=== PATIENT | female | born 1990 | race Caucasian/White ===

== ENCOUNTER 2017-04-02 18:24 | Inpatient (IN) | payer MEDICAID, OTHER ==
[~2017-04-02] VITALS: Ht 167.6 cm; Wt 117.4 kg
[~2017-04-02 18:24] MED LIST: ACET500C5 PO; AMO500 PO; CETI10CA PO; GUAI120S26 PO; IBUP-1542 PO
[2017-04-02 18:34] VITALS: BP 120/69; PULSE 71; RESP 18; Ht 167.6 cm; Wt 117.4 kg
[2017-04-02] MEDS ORDERED: LACTATED RINGER'S 1,000 ML IV SCH (18:35)
--- NOTE | 2017-04-02 18:46 | TRIAGE ---
OB Triage Datetime Report Generated by CPN: 04/02/2017 18:46 Datetime: 04/02/2017 18:46 Assessment Type: Admission Assessment Maternal Assessment Level of Consciousness: Fully Conscious DTR's/Clonus: DTRs 2+; No Clonus Headache: Denies Blurred Vision: No Respiratory Effort: Unlabored; Regular Rhythm; Equal Expansion Breath Sounds, Left: Clear and Equal Breath Sounds, Right: Clear and Equal Nausea/Vomiting: Denies RUQ Epigastric Pain: Denies Lower Extremities Edema: None Degree: None Upper Extremities Edema: None Degree: None Facial Edema: None Fall Risk Assessment History of Falling: (0) No Secondary Diagnosis: (0) No Ambulatory Aid: (0) Bedrest/Nurse Assist IV Therapy: (0) No Gait: (0) Normal/Bedrest/Immobile Mental Status: (0) Oriented to Own Ability Fall Score: 0 Fall Risk Score Definition: No Risk: No action required Datetime: 04/02/2017 18:45 EGA: 39.3 Datetime: 04/02/2017 18:43 Time of Arrival: 04/02/2017 18:11 Arrived By: Ambulatory Arrived From: Home Chief Complaint: uc's Movement: Present Contractions: Regular Time Contractions Began: 04/02/2017 00:00 Rupture of Membranes: Denies Vaginal Bleeding: None Vaginal Discharge: Denies Recent Sexual Intercouse: Denies Abdominal Trauma: Not Applicable Patient Complaints: Contractions; Cramping Time Provider Notified: 04/02/2017 18:30 Provider Notified: DR HALL Initial Plan: nst
[2017-04-02] MEDS ORDERED: CARBOPROST 250 MCG INJ IM PRN (19:00)
[2017-04-02] MEDS ORDERED: MISOPROSTOL 200 MCG TAB PR PRN (19:00)
[2017-04-02] MEDS ORDERED: BUTORPHANOL 2 MG INJ IV PRN (19:00)
[2017-04-02] MEDS ORDERED: OXYTOCIN 30 UNITS/LR 500 ML IV PRN (19:00)
[2017-04-02] MEDS ORDERED: OXYTOCIN 30 UNITS/LR 500 ML IV SCH ×2 (19:00)
[2017-04-02] MEDS ORDERED: IBUPROFEN 600 MG TAB PO PRN (19:00)
[2017-04-02] MEDS ORDERED: METHYLERGONOVINE 0.2 MG INJ IM PRN (19:00)
[2017-04-02] MEDS ORDERED: AMPICILLIN 2 GM/NS (PMX) 100 ML IV ONE (19:00)
[2017-04-02] MEDS ORDERED: LIDOCAINE 1% (MPF) 30 ML INJ INJ PRN (19:00)
[2017-04-02] MEDS ORDERED: LACTATED RINGER'S 1,000 ML IV PRN (19:00)
[2017-04-02 19:08] LABS: ADD SCAN DIFF NO
[2017-04-02 19:10] LABS: BASOPHILS % 0.2 % (0.0-2.0); EOSINOPHILS # 0.1 10^3/ul (0.0-0.5); EOSINOPHILS % 0.6 % (0.0-7.0); HEMATOCRIT 33.4 % (37.0-47.0); HEMOGLOBIN 11.1 g/dl (12.0-16.0); LYMPHOCYTES # 1.3 10^3/ul (0.8-2.9); LYMPHOCYTES % 10.5 % (15.0-51.0); MEAN CORPUSCULAR HEMOGLOBIN 25.9 pg (29.0-33.0); MEAN CORPUSCULAR HGB CONC 33.2 g/dl (32.0-37.0); MEAN CORPUSCULAR VOLUME 77.9 fl (82.0-101.0); MEAN PLATELET VOLUME 11.3 fl (7.4-10.4); MONOCYTE # 0.6 10^3/ul (0.3-0.9); MONOCYTES % 4.4 % (0.0-11.0); NEUTROPHIL # 10.6 10^3/ul (1.6-7.5); NEUTROPHILS % 83.8 % (39.0-77.0); PLATELET COUNT 194 10^3/UL (140-415); RED BLOOD COUNT 4.29 10^6/ul (4.20-5.40); RED CELL DISTRIBUTION WIDTH 15.2 % (11.5-14.5); WHITE BLOOD COUNT 12.6 10^3/ul (4.8-10.8)
[2017-04-02 19:43] LABS: INR 1.05; PARTIAL THROMBOPLASTIN TIME 33.1 Sec (25.0-35.0); PROTIME 13.7 Sec (12.2-14.2); PT RATIO 1.1
[2017-04-02] MEDS ORDERED: FENTAnyl 2MCG/ML-ROPIV 0.2% 100 ML ONE (20:25)
[2017-04-02] MEDS ORDERED: FENTAnyl 2MCG/ML-ROPIV 0.2% 100 ML BAG EPI SCH (20:30)
[2017-04-02] MEDS ORDERED: NALOXONE (0.4 MG/ML) INJ IV PRN (20:30)
[2017-04-02] MEDS ORDERED: ROPIVACAINE 0.2% 100 ML INJ EPI ONE (20:30)
--- NOTE | 2017-04-02 22:34 | LDN ---
Date/Time of Note Date/Time of Note DATE: 04/02/17 TIME: 22:23 Delivery Summary 27 years Ab 1`with Augwas admired in labor this afternoon and progressed to complete dilatation under epidural anesthesia of a male 8 and 9. Laboratory Tests Test 04/02/17 18:50 White Blood Count 12.610^3/ul Red Blood Count 4.2910^6/ul Hemoglobin 11.1g/dl Hematocrit 33.4% Mean Corpuscular Volume 77.9fl Mean Corpuscular Hemoglobin 25.9pg Mean Corpuscular Hemoglobin Concent 33.2g/dl Red Cell Distribution Width 15.2% Platelet Count 07406^3/UL Mean Platelet Volume 11.3fl Neutrophils % 83.8% Lymphocytes % 10.5% Monocytes % 4.4% Eosinophils % 0.6% Basophils % 0.2% Nucleated Red Blood Cells % 0.0/100WBC Neutrophils # 10.610^3/ul Lymphocytes # 1.310^3/ul Monocytes # 0.610^3/ul Eosinophils # 0.110^3/ul Basophils # 0.010^3/ul Nucleated Red Blood Cells # 0.010^3/ul Prothrombin Time 13.7Sec Prothrombin Time Ratio 1.1 INR International Normalized Ratio 1.05 Activated Partial Thromboplast Time 33.1Sec Hepatitis B Surface Antigen NEGATIVE HIV (1&2) Antibody NEGATIVE Current Medications Medications (Trade) Dose Ordered Sig/Tarun Route PRN Reason Start Time Stop Time Status Last Admin Dose Admin Lactated Ringer's 1,000 ml @ 125 mls/hr Q8H IV 04/02/17 18:35 04/02/17 20:08 Ampicillin 100 ml @ 100 mls/hr ONCE ONCE IV 04/02/17 19:00 04/02/17 21:40 DC 04/02/17 20:24 Ampicillin (Ampicillin 1 Gm/ NS (Pmx)) 50 ml @ 100 mls/hr Q4H IV 04/02/17 23:00 04/02/17 23:00 DC Butorphanol Tartrate (Stadol) 2 mg Q2H PRN IV PAIN 04/02/17 19:00 Lidocaine 30 ml 30 ml ONCE PRN INJ EPISIOTOMY/TEARING 04/02/17 19:00 Oxytocin/Lactated Ringer's 500 ml @ 125 mls/hr ONCE -MAY REPEAT X1 IV 04/02/17 19:00 Oxytocin/Lactated Ringer's 500 ml @ 125 mls/hr ONCE IV 04/02/17 19:00 Ibuprofen 600 mg 600 mg ONCE PRN PO Mild Pain (Pain Score 1-3) 04/02/17 19:00 Lactated Ringer's 1,000 ml @ 2,000 mls/hr Q30M PRN IV PRE-EPIDURAL BOLUS 04/02/17 19:00 04/02/17 20:06 Oxytocin/Lactated Ringer's 500 ml @ 0 mls/hr ONCE PRN IV For Hemorrhage Management 04/02/17 19:00 Methylergonovine Maleate (Methergine) 0.2 mg ONCE PRN IM VAGINAL BLEEDING 04/02/17 19:00 Carboprost Tromethamine (Hemabate) 250 mcg ONCE PRN IM VAGINAL BLEEDING 04/02/17 19:00 Misoprostol (Cytotec) 1,000 mcg ONCE PRN MA VAGINAL BLEEDING 04/02/17 19:00 Naloxone HCl (Narcan) 0.2 mg Q2M PRN IV FOR RESP RATE 8 OR LESS 04/02/17 20:30 Fentanyl/ Ropivacaine 100 ml 100 ml EPIDURAL (PCEA) EPI 04/02/17 20:30 Fentanyl/ Ropivacaine 100 ml @ ud STK-MED ONCE .ROUTE 04/02/17 20:25 04/02/17 20:26 DC Ropivacaine (Naropin 0.2% 100 ml) 100 ml ONCE ONCE EPI 04/02/17 20:30 04/02/17 20:35 DC male .new born. Weeks of Gestation 39 Placenta Delivered: Spontaneously Meconium: Thick Episiotomy: No Anesthesia type: Epidural Estimated blood loss: 200 Sponge & Needle done & correct: Yes All needle counts correct: Yes Any foreign bodies felt in the: No Problems: Infant Delivery Information Sex Sex: male Apgars 1 Minute: 8 5 Minute: 9 Suctioning Nose & mouth suctioned at beena: Yes Delee suction performed: No Umbilical Cord Umbilical cord with: 3 Vessels Cord presentations: nuchal cord Nuchal cord present X: 3 Cord Blood was obtained: Yes Mother & Baby Disposition Disposition Mom & Baby to Maternity; Good: Yes Mom transferred to: Med/Surg Baby to NICU: No YESSICA HOGAN MD Apr 02, 2017 22:34
--- NOTE | 2017-04-02 22:47 | HP ---
Date/Time of Note Date/Time of Note DATE: 04/02/17 TIME: 22:35 OB - History Hx of Present Free Text/Dictation 27 years old 4 P2 AB1 39 week and 4 days admired in labor. Laboratory Tests Test 04/02/17 18:50 White Blood Count 12.610^3/ul Red Blood Count 4.2910^6/ul Hemoglobin 11.1g/dl Hematocrit 33.4% Mean Corpuscular Volume 77.9fl Mean Corpuscular Hemoglobin 25.9pg Mean Corpuscular Hemoglobin Concent 33.2g/dl Red Cell Distribution Width 15.2% Platelet Count 77939^3/UL Mean Platelet Volume 11.3fl Neutrophils % 83.8% Lymphocytes % 10.5% Monocytes % 4.4% Eosinophils % 0.6% Basophils % 0.2% Nucleated Red Blood Cells % 0.0/100WBC Neutrophils # 10.610^3/ul Lymphocytes # 1.310^3/ul Monocytes # 0.610^3/ul Eosinophils # 0.110^3/ul Basophils # 0.010^3/ul Nucleated Red Blood Cells # 0.010^3/ul Prothrombin Time 13.7Sec Prothrombin Time Ratio 1.1 INR International Normalized Ratio 1.05 Activated Partial Thromboplast Time 33.1Sec Hepatitis B Surface Antigen NEGATIVE HIV (1&2) Antibody NEGATIVE Current Medications Medications (Trade) Dose Ordered Sig/Tarun Route PRN Reason Start Time Stop Time Status Last Admin Dose Admin Lactated Ringer's 1,000 ml @ 125 mls/hr Q8H IV 04/02/17 18:35 04/02/17 20:08 Ampicillin 100 ml @ 100 mls/hr ONCE ONCE IV 04/02/17 19:00 04/02/17 21:40 DC 04/02/17 20:24 Ampicillin (Ampicillin 1 Gm/ NS (Pmx)) 50 ml @ 100 mls/hr Q4H IV 04/02/17 23:00 04/02/17 23:00 DC Butorphanol Tartrate (Stadol) 2 mg Q2H PRN IV PAIN 04/02/17 19:00 Lidocaine 30 ml 30 ml ONCE PRN INJ EPISIOTOMY/TEARING 04/02/17 19:00 Oxytocin/Lactated Ringer's 500 ml @ 125 mls/hr ONCE -MAY REPEAT X1 IV 04/02/17 19:00 Oxytocin/Lactated Ringer's 500 ml @ 125 mls/hr ONCE IV 04/02/17 19:00 Ibuprofen 600 mg 600 mg ONCE PRN PO Mild Pain (Pain Score 1-3) 04/02/17 19:00 Lactated Ringer's 1,000 ml @ 2,000 mls/hr Q30M PRN IV PRE-EPIDURAL BOLUS 04/02/17 19:00 04/02/17 20:06 Oxytocin/Lactated Ringer's 500 ml @ 0 mls/hr ONCE PRN IV For Hemorrhage Management 04/02/17 19:00 Methylergonovine Maleate (Methergine) 0.2 mg ONCE PRN IM VAGINAL BLEEDING 04/02/17 19:00 Carboprost Tromethamine (Hemabate) 250 mcg ONCE PRN IM VAGINAL BLEEDING 04/02/17 19:00 Misoprostol (Cytotec) 1,000 mcg ONCE PRN [place] VAGINAL BLEEDING 04/02/17 19:00 Naloxone HCl (Narcan) 0.2 mg Q2M PRN IV FOR RESP RATE 8 OR LESS 04/02/17 20:30 Fentanyl/ Ropivacaine 100 ml 100 ml EPIDURAL (PCEA) EPI 04/02/17 20:30 Fentanyl/ Ropivacaine 100 ml @ ud STK-MED ONCE .ROUTE 04/02/17 20:25 04/02/17 20:26 DC Ropivacaine (Naropin 0.2% 100 ml) 100 ml ONCE ONCE EPI 04/02/17 20:30 04/02/17 20:35 DC : 4 Para: 2 Therapeutic : 1 Care: Good Care Abnormal Ultrasound Findings: normal IUP at term admited in active labor Obstetrical Complications: None Medical Complications: None Other Concerns: overweight Past Family/Social History * Past Medical, Surgical, Family and Obstetric Histories reviewed from chart. Blood Type: A+ RPR/VDRL: Negative GBS Status: Negative HBsAG: Negative OB Admission Exam Vital Signs Vital Signs Vital Signs Date Time Temp Pulse Resp B/P Pulse Ox O2 Delivery O2 Flow Rate FiO2 04/02/17 18:34 97.5 71 18 120/69 Room Air Last 72 hours Lab Results CBC & BMP 04/02/17 18:50 YESSICA HOGAN MD Apr 02, 2017 22:47
[2017-04-02] MEDS ORDERED: AMPICILLIN 1 GM/NS (PMX) 50 ML IV SCH (23:00)
[2017-04-03] MEDS: LACTATED RINGER'S 1,000 ML IV* SCH ×3 (00:07→16:07)
[2017-04-03 00:20] VITALS: BP 136/73; RESP 19
[2017-04-03] MEDS ORDERED: ZOLPIDEM 5 MG TAB PO PRN (00:30)
[2017-04-03] MEDS: SENNA/DOCUSATE NA (8.6MG/50MG) TAB PO SCH ×3 (00:30→21:23)
[2017-04-03] MEDS ORDERED: ACETAMINOPHEN 500 MG TAB PO PRN ×2 (00:30)
[2017-04-03] MEDS ORDERED: MISOPROSTOL 200 MCG TAB PR PRN (00:30)
[2017-04-03] MEDS ORDERED: METHYLERGONOVINE 0.2 MG TAB PO PRN (00:30)
[2017-04-03] MEDS ORDERED: METHYLERGONOVINE 0.2 MG INJ IM PRN (00:30)
[2017-04-03] MEDS ORDERED: ONDANSETRON 4 MG INJ IV PRN (00:30)
[2017-04-03] MEDS ORDERED: CARBOPROST 250 MCG INJ IM PRN (00:30)
[2017-04-03] MEDS ORDERED: ACETAMINOPHEN 325 MG TAB PO PRN (00:30)
[2017-04-03] MEDS ORDERED: GUAIFENESIN/DM 5ML CUP PO PRN (00:30)
[2017-04-03] MEDS ORDERED: IBUPROFEN 600 MG TAB PO PRN (00:30)
[2017-04-03] MEDS ORDERED: LANOLIN 7 GM TUBE TOP PRN (00:30)
[2017-04-03] MEDS ORDERED: OXYTOCIN 30 UNITS/LR 500 ML IV PRN (00:30)
[2017-04-03] MEDS ORDERED: WITCH HAZEL/GLYCERIN PAD PR PRN (00:30)
[2017-04-03] MEDS ORDERED: DIPHENHYDRAMINE 25 MG CAP PO PRN (00:30)
[2017-04-03 02:12] LABS: BARBITURATES Negative (NEGATIVE); BENZODIAZEPINES Negative (NEGATIVE); CANNABINOIDS Negative (NEGATIVE); COCAINE Negative (NEGATIVE); OPIATES Negative (NEGATIVE)
[2017-04-03 04:05] VITALS: BP 121/58; PULSE 89; RESP 19
[2017-04-03] MEDS: IBUPROFEN 600 MG TAB PO SCH ×3 (05:37→17:30)
[2017-04-03 08:40] VITALS: BP 121/62; PULSE 80; RESP 16
[2017-04-03 08:45] LABS: HEMATOCRIT 31.1 % (37.0-47.0)
[2017-04-03] MEDS ORDERED: AMOXICILLIN 500 MG CAP PO SCH (09:00)
--- NOTE | 2017-04-03 12:10 | PN ---
Date/Time of Note Date/Time of Note DATE: 04/03/17 TIME: 12:07 OB Subjective Subjective Subjective April 03, 2017 visit Post day 1 Patient is doing well, Ambulatory She is afebrile Abdomen is soft , Fundus is firm Moderate amount of lochia Breasts are soft, Nipples are intact No calf tenderness. Perineum intact . Breast feeding the new born. Laboratory Tests Test 04/02/17 18:50 04/03/17 00:05 04/03/17 08:09 White Blood Count 12.610^3/ul Red Blood Count 4.2910^6/ul Hemoglobin 11.1g/dl 10.0g/dl Hematocrit 33.4% 31.1% Mean Corpuscular Volume 77.9fl Mean Corpuscular Hemoglobin 25.9pg Mean Corpuscular Hemoglobin Concent 33.2g/dl Red Cell Distribution Width 15.2% Platelet Count 74416^3/UL Mean Platelet Volume 11.3fl Neutrophils % 83.8% Lymphocytes % 10.5% Monocytes % 4.4% Eosinophils % 0.6% Basophils % 0.2% Nucleated Red Blood Cells % 0.0/100WBC Neutrophils # 10.610^3/ul Lymphocytes # 1.310^3/ul Monocytes # 0.610^3/ul Eosinophils # 0.110^3/ul Basophils # 0.010^3/ul Nucleated Red Blood Cells # 0.010^3/ul Prothrombin Time 13.7Sec Prothrombin Time Ratio 1.1 INR International Normalized Ratio 1.05 Activated Partial Thromboplast Time 33.1Sec Hepatitis B Surface Antigen NEGATIVE HIV (1&2) Antibody NEGATIVE Urine Opiates Screen Negative Urine Barbiturates Negative Urine Amphetamines Screen Negative Urine Benzodiazepines Screen Negative Urine Cocaine Screen Negative Urine Cannabinoids Negative Current Medications Medications (Trade) Dose Ordered Sig/Tarun Route PRN Reason Start Time Stop Time Status Last Admin Dose Admin Lactated Ringer's 1,000 ml @ 125 mls/hr Q8H IV 04/02/17 18:35 04/03/17 00:16 DC 04/02/17 20:08 Ampicillin 100 ml @ 100 mls/hr ONCE ONCE IV 04/02/17 19:00 04/02/17 21:40 DC 04/02/17 20:24 Ampicillin (Ampicillin 1 Gm/ NS (Pmx)) 50 ml @ 100 mls/hr Q4H IV 04/02/17 23:00 04/02/17 23:00 DC Butorphanol Tartrate (Stadol) 2 mg Q2H PRN IV PAIN 04/02/17 19:00 04/03/17 00:16 DC Lidocaine 30 ml 30 ml ONCE PRN INJ EPISIOTOMY/TEARING 04/02/17 19:00 04/03/17 00:16 DC Oxytocin/Lactated Ringer's 500 ml @ 125 mls/hr ONCE -MAY REPEAT X1 IV 04/02/17 19:00 04/02/17 23:21 Oxytocin/Lactated Ringer's 500 ml @ 125 mls/hr ONCE IV 04/02/17 19:00 04/03/17 00:15 DC 04/02/17 23:22 Ibuprofen 600 mg 600 mg ONCE PRN PO Mild Pain (Pain Score 1-3) 04/02/17 19:00 04/03/17 00:15 DC Lactated Ringer's 1,000 ml @ 2,000 mls/hr Q30M PRN IV PRE-EPIDURAL BOLUS 04/02/17 19:00 04/03/17 00:15 DC 04/02/17 20:06 Oxytocin/Lactated Ringer's 500 ml @ 0 mls/hr ONCE PRN IV For Hemorrhage Management 04/02/17 19:00 04/03/17 00:15 DC Methylergonovine Maleate (Methergine) 0.2 mg ONCE PRN IM VAGINAL BLEEDING 04/02/17 19:00 04/03/17 00:15 DC Carboprost Tromethamine (Hemabate) 250 mcg ONCE PRN IM VAGINAL BLEEDING 04/02/17 19:00 04/03/17 00:15 DC Misoprostol (Cytotec) 1,000 mcg ONCE PRN [place] VAGINAL BLEEDING 04/02/17 19:00 04/03/17 00:15 DC Naloxone HCl (Narcan) 0.2 mg Q2M PRN IV FOR RESP RATE 8 OR LESS 04/02/17 20:30 04/03/17 00:16 DC Fentanyl/ Ropivacaine 100 ml 100 ml EPIDURAL (PCEA) EPI 04/02/17 20:30 04/03/17 00:16 DC Fentanyl/ Ropivacaine 100 ml @ ud STK-MED ONCE .ROUTE 04/02/17 20:25 04/02/17 20:26 DC Ropivacaine 100 ml 100 ml ONCE ONCE EPI 04/02/17 20:30 04/02/17 20:35 DC Lactated Ringer's (Lr) 1,000 ml @ 125 mls/hr Q8H IV* 04/03/17 00:07 Methylergonovine Maleate (Methergine) 0.2 mg Q6H PRN PO VAGINAL BLEEDING 04/03/17 00:30 Ibuprofen (Motrin) 600 mg Q6 PO 04/03/17 06:00 04/03/17 11:50 Ondansetron HCl (Zofran Inj) 4 mg Q6H PRN IV NAUSEA AND/OR VOMITING 04/03/17 00:30 Diphenhydramine HCl (Benadryl) 25 mg Q6H PRN PO PRURITUS 04/03/17 00:30 Zolpidem Tartrate (Ambien) 5 mg QHS PRN PO INSOMNIA 04/03/17 00:30 Senna/Docusate Sodium (Senokot-S) 1 tab BID PO 04/03/17 00:30 04/03/17 09:02 Witch Roselyn/ Glycerin (Tucks Pads) 1 pad BEDSIDE MEDICATION PRN ND HEMORRHOID/EPISIOTMY PAIN 04/03/17 00:30 Lanolin (Gmv-O-Latwjy) 1 applic BEDSIDE MEDICATION PRN TOP BEDSIDE FOR ULISES TO NIPPLES 04/03/17 00:30 04/03/17 05:37 Measles/Mumps/ Rubella Vaccine Live (Mmr Ii Vaccine) 0.5 ml ONCE ONCE SC* 04/05/17 09:00 04/05/17 09:01 Diphtheria/ Tetanus/Acell Pertussis (Adacel) 0.5 ml ONCE ONCE IM* 04/05/17 09:00 04/05/17 09:01 Varicella Virus Vaccine Live (Varivax Vaccine With Diluent) 1,350 unit ONCE ONCE SC* 04/05/17 09:00 04/05/17 09:01 Acetaminophen 650 mg 650 mg Q4H PRN PO ELEVATED TEMPERATURE 04/03/17 00:30 Oxytocin/Lactated Ringer's 500 ml @ 0 mls/hr ONCE PRN IV For Hemorrhage Management 04/03/17 00:30 Methylergonovine Maleate (Methergine) 0.2 mg ONCE PRN IM VAGINAL BLEEDING 04/03/17 00:30 Carboprost Tromethamine (Hemabate) 250 mcg ONCE PRN IM VAGINAL BLEEDING 04/03/17 00:30 Misoprostol (Cytotec) 1,000 mcg ONCE PRN ND VAGINAL BLEEDING 04/03/17 00:30 Acetaminophen (Tylenol Tab) 650 mg Q6H PRN PO PAIN AND OR ELEVATED TEMP 04/03/17 00:30 Acetaminophen (Tylenol Tab) 650 mg Q6H PRN PO PAIN AND OR ELEVATED TEMP 04/03/17 00:30 Amoxicillin (Amoxicillin) 500 mg TID PO 04/03/17 09:00 04/03/17 09:00 DC Guaifenesin/ Dextromethorphan (Robitussin Dm Liquid Cup) 10 ml Q4H PRN PO COUGH 04/03/17 00:30 Ibuprofen (Motrin) 600 mg Q6H PRN PO PAIN AND OR ELEVATED TEMP 04/03/17 00:30 Advised to use Lanolin cream on her nipples after breast feeding. YESSICA HOGAN MD Apr 03, 2017 12:10
[2017-04-03 16:31] VITALS: BP 123/58; PULSE 77; RESP 16
[2017-04-03 19:30] VITALS: BP 108/66; PULSE 84; RESP 18
[2017-04-04] MEDS: IBUPROFEN 600 MG TAB PO SCH ×4 (00:01→17:43)
[2017-04-04] MEDS: LACTATED RINGER'S 1,000 ML IV* SCH ×3 (00:07→16:07)
[2017-04-04 04:45] VITALS: BP 127/64; PULSE 85; RESP 18
[2017-04-04 08:30] VITALS: BP 111/64; PULSE 68; RESP 20
[2017-04-04] MEDS: SENNA/DOCUSATE NA (8.6MG/50MG) TAB PO SCH (09:29)
[2017-04-04 12:06] LABS: RUBELLA ANTIBODY - IGG 1.65 index
--- NOTE | 2017-04-04 13:40 | DS ---
Date/Time of Note Date/Time of Note DATE: 04/04/17 TIME: 13:40 Obstetrical Discharge Record Final Diagnosis Final Diagnosis: Term delivered Vaginal Delivery Obstetrical Delivery: Spontaneous Condition on Discharge Physical Assessment Voiding: Yes Bowel Movement: Yes Breast: Soft, non-tender Fundus: Firm Calf Tenderness: No Patient Condition: Stable KALIA HARRIS MD Apr 04, 2017 13:40
[2017-04-04 16:00] VITALS: BP 125/75; PULSE 62; RESP 18
[2017-04-05] MEDS ORDERED: DIPHTH/TET/ACEL PERTUSS (ADULT) 0.5 ML VIAL IM* ONE (09:00)
[2017-04-05] MEDS ORDERED: VARICELLA VACCINE LIVE/PF 1,350 UNIT/0.5 ML ML SC* ONE (09:00)
[2017-04-05] MEDS ORDERED: MEASLES,MUMPS,RUBELLA VACCINE INJ SC* ONE (09:00)
== END 2017-04-04 18:20 | disposition home or self-care (01) | DRG 775 ==
LOC: OBT 18:24 → L-D 18:26 → OBT 18:30 → L-D 18:30 → PP1 04-03 00:18
PROVIDERS: ADMIT Obstetrics & Gynecology Obstetrics; ATTEND Obstetrics & Gynecology Obstetrics
PROC: 10E0XZZ Delivery of Products of Conception, External Approach (ICD-10-PCS; principal; 2017-04-02)
DX: O69.81X0 Labor and delivery complicated by cord around neck, without compression, not applicable or unspecified (principal); Z37.0 Single live birth; Z3A.39 39 weeks gestation of pregnancy
CPT/HCPCS: 62319; 80307; 85014; 85018; 85025; 85610; 85730; 86592; 86703; 86762; 86900; 86901; 87340; G0463; J0290; J2590; J2795; J3010; J7120